=== PATIENT | female | born 1955 | race Hispanic/Latino ===

== ENCOUNTER 2018-01-29 02:19 | Observation (INO) | payer OTHER ==
[~2018-01-29] VITALS: Ht 165.1 cm; Wt 76.7 kg
[2018-01-29] VITALS (7 sets, daily range): BP systolic 101–153; BP diastolic 57–73
[~2018-01-29 02:19] MED LIST: Z.0.CELEBREX200 MG PO; Z.0.DIOVAN320 MG PO; Z.0.EXFORGE HCT 101; Z.0.MOBIC15 MG; Z.0.PROTONIX40 MG PO; Z.0.TOPROL XL50 MG PO; Z.0.VERAMYST10 GM; Z.0.XANAX0.25 MG
[2018-01-29 02:52] LABS: BASOPHILS % 0.2 % (0.0-1.0); EOSINOPHILS # (AUTO) 0.1 (0.0-0.4); EOSINOPHILS % 1.3 % (0.0-6.0); HEMATOCRIT 40.1 % (34.2-44.1); HEMOGLOBIN 13.4 g/dL (12.0-16.0); LYMPHOCYTES # (AUTO) 2.4 (1.0-3.2); LYMPHOCYTES % 27.8 % (18.0-39.1); MEAN CORPUSCULAR HEMOGLOBIN 31.1 pg (28-32); MEAN CORPUSCULAR HGB CONC 33.4 g/dL (31-35); MONOCYTES # (AUTO) 0.6 (0.2-0.8); MONOCYTES % 6.7 % (4.4-11.3); NEUTROPHILS # (AUTO) 5.4 (2.1-6.9); NEUTROPHILS % 63.8 % (38.7-80.0); PLATELET COUNT 182 x10e3/uL (140-360); RED BLOOD COUNT 4.31 x10e6/uL (3.6-5.1); RED CELL DISTRIBUTION WIDTH 12.8 % (11.7-14.4)
[2018-01-29 03:04] LABS: BILIRUBIN,URINE NEGATIVE (NEGATIVE); CLARITY,URINE CLEAR (CLEAR); COLOR,URINE YELLOW (YELLOW); KETONES,URINE NEGATIVE (NEGATIVE); LEUKOCYTE ESTERASE ,URINE NEGATIVE (NEGATIVE); NITRITE,URINE NEGATIVE (NEGATIVE); PROTEIN,URINE DIPSTICK NEGATIVE (NEGATIVE); URINE UROBILINOGEN 0.2 mg/dL (0.2 - 1)
[2018-01-29 03:06] LABS: BACTERIA,URINE FEW /HPF; EPITHELIAL CELLS,URINE RARE /LPF; WBC,URINE (MAN) 0-5 /HPF (0-5)
[2018-01-29] MEDS ORDERED: MORPHINE SULFATE 2 MG/ML SYR IV STA (03:16)
[2018-01-29] MEDS ORDERED: ONDANSETRON HCL INJ 2 MG/ML VIAL IV STA (03:16)
[2018-01-29 03:18] LABS: ALANINE AMINOTRANSFERASE 16 IU/L (0-55); ALBUMIN 3.6 g/dL (3.5-5.0); ALBUMIN/GLOBULIN RATIO 1.2 (0.8-2.0); ALKALINE PHOSPHATASE 64 IU/L (40-150); ANION GAP 13.5 mmol/L (8-16); BLOOD UREA NITROGEN 12 mg/dL (7-26); BUN/CREATININE RATIO 14 (6-25); CALCIUM 8.7 mg/dL (8.4-10.2); CARBON DIOXIDE 24 mmol/L (22-29); CHLORIDE 107 mmol/L (98-107); CREATININE, SERUM 0.83 mg/dL (0.57-1.11); EST GLOMERULAR FILTRATION RATE > 60 ML/MIN (60-); GLUCOSE 124 mg/dL (74-118); POTASSIUM 3.5 mmol/L (3.5-5.1); SODIUM 141 mmol/L (136-145)
[2018-01-29] MEDS ORDERED: DIATRIZOATE MEGL/DIATRIZOA SOD 30 ML BTL PO ONE (03:20)
[2018-01-29] MEDS ORDERED: ACETAMINOPHEN 325 MG TAB PO ONE (03:45)
--- NOTE | 2018-01-29 05:10 | Diagnostic Imaging Report ---
EXAM: CT ABDOMEN AND PELVIS without IV CONTRAST INDICATION: Lower abdominal pain COMPARISON: None TECHNIQUE: The abdomen and pelvis were scanned using a multidetector helical scanner. Coronal and sagittal reformations were obtained. Routine protocol performed. IV Contrast: None Oral Contrast: Redicat CTDIvol has been reviewed. It is below the limits set by the Radiation Protocol Committee (RPC). FINDINGS: LOWER THORAX: No consolidations LIVER: There are two subcentimeter hypodensities in the liver that are too small to characterize. BILIARY: Normal gallbladder. No ductal dilation. SPLEEN: No masses PANCREAS: No masses ADRENALS: No nodules RIGHT KIDNEY: No nephroureterolithiasis or hydronephrosis. LEFT KIDNEY: No nephroureterolithiasis or hydronephrosis. GI TRACT: The appendix does not fill with contrast and is distended up to 1 cm. There is no significant surrounding inflammation. VESSELS: Mild atherosclerotic changes of the abdominal aorta without aneurysm. PERITONEUM/RETROPERITONEUM: No free air or fluid LYMPH NODES: No lymphadenopathy REPRODUCTIVE ORGANS: Not visualized BLADDER: Normal SOFT TISSUES: Normal BONES: No suspicious bone lesions. IMPRESSION: The appendix does not filled with contrast and is distended up to 1 cm. There is no significant adjacent inflammation. This is most likely early acute appendicitis, the differential includes an appendiceal mucocele. Study discussed with Dr. Singh January 29, 2018 at 0503 hours. Signed by: Dr. Barbara Mcduffie M.D. on 01/29/2018 5:06 AM
[2018-01-29] MEDS ORDERED: ACETAMINOPHEN 1000 MG/100 ML IV PRN (05:15)
[2018-01-29] MEDS ORDERED: CEFOXITIN 1GM/ DEXTROSE 50ML ML IV SCH (05:15)
[2018-01-29] MEDS ORDERED: ONDANSETRON HCL INJ 2 MG/ML VIAL IV PRN (05:15)
[2018-01-29] MEDS ORDERED: DIOVAN160 MG PO (05:43)
[2018-01-29] MEDS ORDERED: ZOFRAN ODT4 MG (05:44)
[2018-01-29] MEDS: SODIUM CHLORIDE 0.9% 1000ML 1,000 ML IV SCH ×2 (05:54→16:57)
[2018-01-29] MEDS: CEFOXITIN 1GM/ DEXTROSE 50ML 50 ML IV SCH ×2 (07:54→08:30)
[2018-01-29] MEDS ORDERED: PANTOPRAZOLE SOD 40 MG TABEC PO PRN (10:45)
[2018-01-29] MEDS ORDERED: HYDRALAZINE HCL 20 MG/ML VIAL IV PRN (10:45)
--- NOTE | 2018-01-29 13:30 | History and Physical ---
CHIEF COMPLAINT: Abdominal pain in right lower quadrant. HPI: This is a 62-year-old female with past medical history of hypertension and acid reflux who comes into the ED with complaints of abdominal pain that began last night. Patient reports she had periumbilical abdominal pain that first initially went to the left lower quadrant, then radiated to the right lower quadrant. She had some associated nausea, vomiting, and diarrhea. Patient presented to the ED with CT scan consistent with acute appendicitis. Patient was seen and evaluated at bedside on the medical floor, currently doing well with no other complaints. She is using Tylenol for pain and her pain is well controlled at this time. General surgery has been consulted. Her vital signs were stable when I evaluated her and her white count is 8.4. REVIEW OF SYSTEMS: Pertinent positive: Nausea, vomiting, diarrhea, abdominal pain. Pertinent negative: Denies any chest pain, palpitations, dysuria, hematuria, frequency, urgency, lightheadedness, dizziness, headache, shortness of breath, fever, cough, congestion, or any other complaints. The rest of the 14-point review of systems are reviewed with patient and are negative. ALLERGIES: CODEINE, IODINE, LEVAQUIN, MELOXICAM, MORPHINE, TRAMADOL. HOME MEDICATIONS 1. Metoprolol XL 50 mg every 24 hours. 2. Protonix 40 mg daily. 3. Valsartan 160 mg p.o. b.i.d. PAST MEDICAL HISTORY: Hypertension, acid reflux. SURGICAL HISTORY: Reports none. FAMILY HISTORY: Hypertension and diabetes. SOCIAL HISTORY: No drugs, no alcohol, does not smoke. Good social support. Has children. VITAL SIGNS: Temperature is 98.5, pulse 74, respiratory rate is 18, blood pressure 142/62, pulse ox 94% on room air. LABORATORY DATA: Lab findings show white count of 8.4, hemoglobin 13, hematocrit is 40, platelets of 182. Chemistries: Sodium 141, potassium 3.5, chloride 107, bicarb 24, anion gap of 13, BUN is 12, creatinine is 0.8, glucose 124, calcium 8.7, total bilirubin 0.5, AST 18, ALT 16, total protein 6.6, albumin 3.6. Urinalysis was found to be negative. MICROBIOLOGY: None. IMAGING STUDIES: CT abdomen and pelvis without IV contrast showed there are concerns for early acute appendicitis. PHYSICAL EXAMINATION GENERAL: Not in acute distress, alert and oriented x3, cooperative on exam. HEENT: Head normocephalic, atraumatic. Eyes: Pupils equal and reactive to light bilaterally. Extraocular movements intact bilaterally. Throat: No evidence of any erythema or exudates in the posterior pharynx. Has poor dentition. NECK: Supple with good range of motion. PULMONARY: Clear to auscultation bilaterally. No wheezing, no rales, no rhonchi, no crackles appreciated. CARDIOVASCULAR: Positive S1, S2. No murmurs, rubs, or gallops appreciated. ABDOMEN: Tender to palpation in the periumbilical area right lower quadrant. Abdomen is soft and nondistended. Bowel sounds present. MUSCULOSKELETAL: Strength is 5/5 throughout. No evidence of any muscle deficit on examination. No weakness appreciated. NEUROLOGIC: Cranial nerves II through XII grossly intact. No evidence of any neurological deficit on exam. SKIN: Intact. Warm to touch. Good cap refill. PSYCHIATRIC: Normal affect and mood. EXTREMITIES: No edema. Good range of motion throughout. IMPRESSION 1. Abdominal pain with acute appendicitis. 2. Hypertension. 3. Nausea, vomiting, and dehydration. 4. Diarrhea. PLAN: At this time, patient is n.p.o. General surgery consulted for possible appendectomy, was evaluated by surgery. Will keep n.p.o., IV fluids, pain control. Resume antihypertensives that she takes at home. PRN hydralazine. Continue with IV fluid for hydration for now. Continue with n.p.o. Will await for general surgery's final recommendations and we will continue from there. Job#: [id number] JEREMY
[2018-01-29] MEDS: CEFOXITIN SOD 1 GM VIAL IV SCH (16:57)
[2018-01-29] MEDS: VALSARTAN 160 MG TAB PO SCH (17:00)
[2018-01-30 00:28] VITALS: BP 135/62
[2018-01-30] MEDS: SODIUM CHLORIDE 0.9% 1000ML 1,000 ML IV SCH ×2 (00:46→05:52)
[2018-01-30] MEDS: CEFOXITIN SOD 1 GM VIAL IV SCH ×3 (00:46→17:16)
[2018-01-30 05:28] LABS: BASOPHILS % 0.5 % (0.0-1.0); EOSINOPHILS # (AUTO) 0.2 (0.0-0.4); EOSINOPHILS % 3.7 % (0.0-6.0); HEMATOCRIT 39.1 % (34.2-44.1); HEMOGLOBIN 12.6 g/dL (12.0-16.0); LYMPHOCYTES # (AUTO) 2.4 (1.0-3.2); LYMPHOCYTES % 55.4 % (18.0-39.1); MEAN CORPUSCULAR HEMOGLOBIN 30.8 pg (28-32); MEAN CORPUSCULAR HGB CONC 32.2 g/dL (31-35); MEAN CORPUSCULAR VOLUME 95.6 fL (81-99); MONOCYTES # (AUTO) 0.4 (0.2-0.8); NEUTROPHILS # (AUTO) 1.4 (2.1-6.9); NEUTROPHILS % 30.9 % (38.7-80.0); PLATELET COUNT 123 x10e3/uL (140-360); RED BLOOD COUNT 4.09 x10e6/uL (3.6-5.1); RED CELL DISTRIBUTION WIDTH 12.9 % (11.7-14.4)
[2018-01-30 05:55] LABS: ALANINE AMINOTRANSFERASE 14 IU/L (0-55); ALBUMIN/GLOBULIN RATIO 1.2 (0.8-2.0); ALKALINE PHOSPHATASE 53 IU/L (40-150); ANION GAP 13.2 mmol/L (8-16); BLOOD UREA NITROGEN 6 mg/dL (7-26); BUN/CREATININE RATIO 8 (6-25); CALCIUM 7.6 mg/dL (8.4-10.2); CARBON DIOXIDE 19 mmol/L (22-29); CHLORIDE 116 mmol/L (98-107); CREATININE, SERUM 0.72 mg/dL (0.57-1.11); EST GLOMERULAR FILTRATION RATE > 60 ML/MIN (60-); GLUCOSE 77 mg/dL (74-118); POTASSIUM 4.2 mmol/L (3.5-5.1); SODIUM 144 mmol/L (136-145)
[2018-01-30 06:23] VITALS: BP 117/56
[2018-01-30 06:39] LABS: PLATELET ESTIMATE SLIGHTLY DECREASED
[2018-01-30 06:40] LABS: PLATELET MORPHOLOGY COMMENT FEW LARGE; RBC MORPHOLOGY COMMENT NORMAL
[2018-01-30 07:30] VITALS: BP 163/76
[2018-01-30 08:15] VITALS: BP 163/76
[2018-01-30] MEDS: VALSARTAN 160 MG TAB PO SCH ×2 (08:35→17:17)
[2018-01-30] MEDS ORDERED: METOPROLOL SUCCINATE 50 MG TAB XL PO SCH (09:00)
[2018-01-30 11:30] VITALS: BP 153/69
--- NOTE | 2018-01-30 13:12 | Discharge Summary ---
DISCHARGE DIAGNOSES 1. Abdominal pain likely secondary to viral gastroenteritis. 2. Dilated appendix, no evidence of appendicitis per General Surgery. 3. Nausea, vomiting, dehydration--resolved. 4. Tolerated regular diet. CONSULTANTS: General Surgery. VITAL SIGNS: Temperature is 97.9, pulse 74, respiratory rate is 18, blood pressure 163/76, pulse ox 97% on room air. LAB FINDINGS: Show white count of 4.3, hemoglobin 12, hematocrit is 39, platelets of 123. Chemistry: Sodium 144, potassium 4.2, chloride 116, bicarb is 19, anion gap of 13, BUN is 6, creatinine is 0.7, glucose 77. LFTs were normal. Albumin was 3. Urinalysis was negative. MICROBIOLOGY: None. IMAGING STUDIES: CT abdomen and pelvis: The appendix is not filled with contrast. It is distended up to 1 cm. There is no significant adjacent inflammation. This is most likely early acute appendicitis. HOSPITAL COURSE: This is a 62-year-old female who comes into the ED with complaints of abdominal pain, nausea, vomiting and dehydration. Patient was admitted and further evaluated. General Surgery was consulted. CT imaging was concerning for underlying dilation of the appendix and possible underlying acute appendicitis, but after further review by Cardiology it was felt that the patient likely has viral gastroenteritis and there was no evidence of acute appendicitis. Of note, General Surgery okayed the patient for discharge home after tolerating diet. On discharge patient was tolerating diet well with no other complaints. She had no other complaints of abdominal pain. Nausea, vomiting had all resolved prior to discharge home. On the day of discharge, vital signs stable, labs reviewed and stable. Patient seen and evaluated and examined thoroughly on the day of discharge with no other complaints. Patient verbalized understanding and agreed with the plan of care. Follow up accordingly as an outpatient with the primary care physician in 1 week. Patient was cleared by General Surgery for discharge home. Patient tolerating diet prior to discharge home, and she has no other complaints. MEDICATIONS: See med reconciliation form. DISPOSITION: To home. CONDITION: Stable. DIET: Heart healthy. FOLLOWUP: Follow up with primary care physician in 1 week. In the event of any worsening symptoms, patient advised to come back to the ED for further evaluation. Discharge summary took greater than 35 minutes. TYSON GUTIERREZ MD Job#: [id number] EV
[2018-01-30 16:23] VITALS: BP 144/69
== END 2018-01-30 18:11 | disposition home or self-care (01) ==
LOC: ER 02:19 → INTOOBSV 05:07 → ERHOLD 05:07 → MED/SURG2 06:19
PROVIDERS: ADMIT Internal Medicine; ATTEND Internal Medicine
DX: A08.4 Viral intestinal infection, unspecified (principal); I10 Essential (primary) hypertension; K21.9 Gastro-esophageal reflux disease without esophagitis; E86.0 Dehydration; R19.7 Diarrhea, unspecified; K38.8 Other specified diseases of appendix
CPT/HCPCS: 36415 ×2; 74176; 80053 ×2; 81001; 82948 ×2; 85025 ×2; 93005; 96360; 96361; 99284; G0378 ×2; J0694 ×2; J2405; J7030 ×2; J2270

== ENCOUNTER 2019-12-17 01:36 | Emergency (ER) | payer MEDICARE ==
[~2019-12-17] VITALS: Ht 165.1 cm; Wt 74.8 kg
[~2019-12-17 01:36] MED LIST changes: +DIOVAN160 MG PO; +XANAX0.25 MG PO; +ZOFRAN ODT4 MG
--- OUTSIDE RECORDS SUMMARY | 2019-12-17 01:39 | XMS REPORT ---
Author Author Beatriz Bolaños Organization [employer] Address Unknown Phone Unavailable Care Team Providers Care Supervisor Of Way Name Role Phone Noa Bolaños CP Unavailable Allergies No Known Allergies Problems Problem Type Condition Code Onset Dates Condition Statu s Problem Anxiety F41.9 Active Problem CARPENTER (dyspnea on exertion) R06.09 Ac tive Problem Hypertensive left ventricular hypertrophy, witho ut heart failure I11.9 Active Problem Dizziness R42 Active Problem Nonrheumatic tricuspid (valve) insufficiency I36.1 Active Problem Heart palpitations R00.2 Active Problem Essential hypertension I10 Activ e Problem Vertigo R42 Active Problem Precordial chest pain R07.2 Active Medications Medication Code System Code Instructions Start Date End Date Status Dosage Metoprolol Succinate [facility] [address]-89 25 MG Orally daily Active 1 tablet Results No Known Results Summary Purpose [employer] Submission
--- OUTSIDE RECORDS SUMMARY | 2019-12-17 01:39 | XMS REPORT | Continuity of Care Document ---
Author Author [employer] Address Unknown Phone Unavailable Care Team Providers Care Answering Service Operator Name Role Phone [employer] Unavailable Un available Problems Problem Status Onset Date Classification Date Reported Comments Source Anxiety Active Problem 11/19/2018 Mohamed O Jeroudi CARPENTER (dyspnea on exertion) Acti ve Problem Mohamed O Jeroudi Hypertensive left ventricular hypertroph y, without heart failure Active Prob eyad 11/19/2018 Mohamed O Jeroudi Dizziness Active Problem 11/19/2018 Mohamed O Jeroudi Nonrheumatic tricuspid (valve) insufficiency Active Problem 11/19/2018 Mohamed O Jeroudi Heart palpitations Active Problem 11/19/2018 Mohamed O Jeroudi Essential hypertension Active Problem 11/19/2018 Mohamed O Jeroudi Vertigo Active Problem 11/19/2018 Mohamed O Jeroudi Precordial chest pain Active Problem 11/19/2018 Mohamed O Jeroudi Medications Medication Details Route Status Patient Instructions Ordering Provider Order Date Source Metoprolol Succinate 1 tablet Orally Active 25 MG Orally daily Deanoushmuel Sandovalamed O Lioneldi Allergies, Adverse Reactions, Alerts No Known Medication Allergies Immunizations No Data Provided for This Section Results No Data Provided for This Section Pathology Reports No Data Provided for This Section Diagnostic Reports No Data Provided for This Section Consultation Notes No Data Provided for This Section Discharge Summaries No Data Provided for This Section History and Physicals No Data Provided for This Section Vital Signs No Data Provided for This Section Encounters No Data Provided for This Section Procedures No Data Provided for This Section Assessment and Plan No Data Provided for This Section Plan of Care No Data Provided for This Section Social History No Data Provided for This Section Family History No Data Provided for This Section Advance Directives No Data Provided for This Section Functional Status No Data Provided for This Section
--- OUTSIDE RECORDS SUMMARY | 2019-12-17 01:40 | XMS REPORT | Continuity of Care Document ---
Author Author [facility] t Organization [facility] Address [address] [place] [address] Phone Unavailable Care Team Providers Care Acquisition Lead Name Role Phone FRANK FONSECA MD PCP DAHU, S JIRIES Attphys Unavailable DAHU, S JIRIES Admphys Unavailable Payers Payer Name Policy Type Policy Number Effective Date Expiration Date Elmer fabian [facility] Medicare Complete [id number] 2018 00:00:00 [facility] [employer] [id number] 2007 00:00:00 [facility] Problems Condition Name Condition Details Condition Category Status Onset Date Resolution Date Last Treatment Date Treating Clinician Comments Source Appendicitis Appendicitis Problem Active [facility] Anxiety Anxi ety Active Problem 11/19/2018 Noa Moranprecious Problem Active 2018-11-19 02:45:22 Amilcar Borrero CARPENTER (dyspnea on exertion) CARPENTER (dyspnea on exertion) Active Problem 11/19/2018 Loriamed O Deanoudi Problem Active 23-11-15 02:45:22 Drew Borrero Hypertensive left ventricular hypertrophy, without hea rt failure Hypertensive left ventricular hypertrophy, without heart failure Active Problem 11/19/2018 Mohamed O Deanoudi Problem Active 23-11-15 02:45:22 Drew Borrero Dizziness Dizz iness Active Problem 11/19/2018 Mohamed O Jeroudi Problem Active 2018-11-19 02:45:22 Drew Borrero Nonrheumatic tricuspid (valve) insufficiency Nonrheumatic tricuspid (valve) insufficiency Active Problem 11/19/2018 Noa Bolaños Problem Active 2018-11-19 02:45:22 [facility] Heart palpitations Hear t palpitations Active Problem 11/19/2018 Noa Bolaños Problem Active 2018-11-19 02:45:22 [facility] Essential hypertension Esse ntial hypertension Active Problem 11/19/2018 Noa Bolaños Problem Active 20 23-11-15 02:45:22 [facility] Precordial chest pain Prec ordial chest pain Active Problem 11/19/2018 Noa Bolaños Problem Active 2018-11-19 02:45:2 2 [facility] Allergies, Adverse Reactions, Alerts Allergy Name Allergy Type Status Severity Reaction(s) Onset Date Inacti ve Date Treating Clinician Comments Source Morphine Allergy to Substance Active tachycardia 2018-01-29 00:00: 00 [facility] Tramadol Allergy to Substance Active tachycardia and shakes 2018-01-29 00:00:00 [facility] Meloxicam Allergy to Substance Active 2018-01-29 00:00:00 [facility] iodine DA Active [place] 2016-05-14 00:00:00 [facility] codeine DA Active [place] 2016-05-14 00:00:00 [facility] levofloxacin DA Active [place] 2016-05-14 00:00:00 [facility] Iodine Allergy to Substance Active Severe 2016-04-23 00:00:00 [facility] Codeine Allergy to Substance Active Moderate 2016-04-23 00:00:00 [facility] Levofloxacin Allergy to Substance Active 2016-04-23 00:00:0 0 [facility] SHRIMP DA Active [place] 2012-12-09 00:00:00 [facility] Medications Ordered Medication Name Filled Medication Name Start Date Stop Da te Current Medication? Ordering Clinician Indication Dosage Frequency Signature (SIG) Comments Components Source Alprazolam (Xanax) 0.25 Mg Tablet Alprazolam (Xanax) 0.25 Mg Tablet 2019-04-29 00:00:00 Yes Von Mcghee Md 1 Three Times A Day as needed for Anxiety [facility] Metoprolol Succinate 2018-11-19 02:45:22 Yes Noa Bolaños 1 tablet [facility] Metoprolol Succinate (Toprol Xl) 50 Mg Tab.sr.24h Meto prolol Succinate (Toprol Xl) 50 Mg Tab.sr.24h Yes 50 Rt Daily [facility] Ondansetron (Zofran Odt) 4 Mg Tab.rapdis Ondansetron ( Zofran Odt) 4 Mg Tab.rapdis Yes 8 Every 6 Hours as needed for Nausea And Vomiting [facility] Pantoprazole Sodium (Protonix) 40 Mg Tablet. Pantopr azole Sodium (Protonix) 40 Mg Tablet. Yes 40 Rt Daily as needed for In digestion [facility] Valsartan (Diovan) 160 Mg Tab Valsartan (Diovan) 160 Mg Tab Yes 160 Twice A Day [facility] Alprazolam (Xanax) 0.25 Mg Tablet, Alprazolam (Xanax) 0.25 Mg Ta blet, 2018-01-29 00:00:00 No Daily [facility] Amlodipine/Valsartan/Hctz (Exforge Hct 10-320-25 Mg Ta b) 1 Each Tablet, Amlodipine/Valsartan/Hctz (Exforge Hct 10-320-25 Mg Tab) 1 Each Tablet, 2018-01-29 00:00:00 No Daily [facility] Celecoxib (Celebrex) 200 Mg Capsule, 200 Mg Oral Celec oxib (Celebrex) 200 Mg Capsule, 200 Mg Oral 2018-01-29 00:00:00 No 200 Rt Bid [facility] Fluticasone Furoate (Veramyst) 10 Gm [place].susp, Fluti casone Furoate (Veramyst) 10 Gm [place].susp, 2018-01-29 00:00:00 No [facility] Meloxicam (Mobic) 15 Mg Tablet, Meloxicam (Mobic) 15 Mg Tablet, 2018-01-29 00:00:00 No Daily [facility] Valsartan (Diovan) 320 Mg Tablet, 320 Mg Oral Valsarta n (Diovan) 320 Mg Tablet, 320 Mg Oral 2018-01-29 00:00:00 No 320 [facility] Procedures This patient has no known procedures. Encounters Start Date/Time End Date/Time Encounter Type [facility] Encounter ID Source 2019-04-29 19:58:00 2019-04-29 21:27:00 Departed Emergency Room [facility] [id number] [facility] 2018-11-18 15:28:00 2018-11-18 15:28:00 Outpatient Noa Bolaños MD [place] [id number] [employer] 2018-01-29 05:07:00 2018-01-30 18:11:00 Discharged Inpatient (obs) 1 TYSON GUTIERREZ [facility] [id number] [facility] Results Test Description Test Time Test Comments Results Result Comments Source - HEPA IMAG INCL GB W PHA 2019-11-19 11:24:00 [place]: B St: REG -- Name: SHIVACAMPBELL SUMMERS [facility] : 1955 Age/S: 64/F [address] [facility] Unit #: [id number] Loc: [place] [address] Phys: Frank Barney MD Acct: [id number] Dis Date: Status: REG CLI PHONE #: [phone] Exam Date: 11/19/2019 1019 FAX #: [phone] Reason: R10.13 EXAMS: CPT CODE: [id number] HEPA IMAG INCL GB W PHA [id number] HISTORY: R10.13 EXAM: NUCLEAR MEDICINE HEPATOBILIARY SCAN. TECHNIQUE: After IV injection of 5.9 mCi Tc 99m Choletec, sequential planar images were obtained over the upper abdomen out to 60 minutes. FINDINGS: Homogeneous distribution of radiopharmaceutical in the liver. Normal accumulation of radiopharmaceutical in the gallbladder by 45 minutes. Normal accumulation of radiopharmaceutical in small bowel by 30 minutes. Gallbladder ejection fraction measured up to 68%. IMPRESSION: 1. No evidence of acute cholecystitis or biliary obstruction. 2. Normal gallbladder ejection fraction. Location: [facility] at 1124 Reported and signed by: Gomez Villafana MD CC: Technologist: PRITESH RAJPUT Trnscrd Date/Time/By: 11/19/2019 (1124) : By: [email or web address] Orig Print D/T: S: 11/19/2019 (1120) PAGE 1 Signed Report - US ABDOMEN COMPLETE 2019-11-17 10:35:00 Name : CAMPBELL SHANNON [facility] : 1955 Age/S: 64 / F [address] [facility] Unit #: [id number] Loc: [place] [address] Phys: Frank Barney MD Acct: [id number] Dis Date: Status: REG CLI PHONE #: [phone] Exam Date: 11/17/2019 0954 FAX #: [phone] Reason: R14.0,R10.84 EXAMS: CPT CODE: [id number] US ABDOMEN COMPLETE 33422 REASON FOR EXAM: R14.0,R10.84 EXAM ORDER DATE: 11/17/2019 8:49 AM Attending M.D.: Frank Granados MD PROCEDURE: - US ABDOMEN COMPLETE Technique: Grayscale and color Doppler images of the abdomen. Comparison study: Abdominal ultrasound June 11, 2017 FINDINGS: Aorta and IVC: Patent and grossly normal in caliber. Liver: Size: 13.2 cm craniocaudally Parenchyma and contour: Smooth contour. Normal echogenicity. Cysts and/or masses: None. Intrahepatic bile ducts: No intrahepatic biliary ductal dilation Common bile duct: 1.6 mm in diameter. No echogenic filling defects in visualized duct. Gallbladder: Stones/sludge: No intraluminal stones or sludge. Wall: 1.7 mm in thickness. No discontinuity. No polyps. No pericholecystic fluid. No hyperemia. Sonographic Dunn's sign: Negative Portal vein: Portal vein caliber is within normal limits. Portal vein is patent with hepatopetal flow. Pancreas: Incompletely visualized. However the visualized portions are grossly within normal limits. Right kidney: parenchyma echogenicity: Normal echogenicity size: 8.3 x 3.8 x 4.3 cm stones: none cysts/masses: none hydronephrosis: none PAGE 1 Signed Report (CONTINUED) Name: CAMPBELL SHANNON [facility] : 1955 Age/S: 64 / F [address] [facility] Unit #: [id number] Loc: [place] [address] Phys: Frank Barney MD Acct: [id number] Dis Date: Status: REG CLI PHONE #: [phone] Exam Date: 11/17/2019953 FAX #: [phone] Reason: R14.0,R10.84 EXAMS: CPT CODE: [id number] US ABDOMEN COMPLETE 95789 <Continued> Left kidney: parenchyma echogenicity: Normal echogenicity size: 8.1 x 4.2 x 3.6 cm stones: none cysts/masses: none hydronephrosis: none Spleen: size: 7.9 x 2.8 x 3.1 cm cysts/masses: Parenchyma is sonographically unremarkable. Ascites/pleural effusions: None IMPRESSION: Sonographically unremarkable abdomen. Location: [facility] Electronically Signed by Gomez Villafana MD on 11/16 at 1035 Reported and signed by: Gomez Villafana MD CC: Technologist: Netta Escobar RDMS Trnmab Date/Time: 11/17/2019 (1035) [email or web address] Orig Print D/T: S: 11/17/2019 (1038) Probe: PAGE 2 Signed Report SCR MAMM BILATERAL EVER CAD DIGITAL 2018-10-29 12:34:29 - SCR MAMM BILATERAL EVER CAD DIGITALBILATERAL DIGITAL SCREENING MAMMOGRAM 3D/2D WITH CAD: 10/29/2018CLINICAL: Asymptomatic. Digital breast tomosynthesis was performed in addition to routine CC and MLO views. Current mammographic images were evaluated by either a [employer] M-Vu or a [employer] CAD (computer aided detection system). Comparison is made to exams dated 12/18/2017 mammogram, 10/30 mammogram, and 10/27/2015 mammogram - [facility]-. There are scattered fibroglandular tissues in both breasts. No suspicious mass, architectural distortion, malignant type calcification, or lymph node abnormality detected. Breast architecture is stable compared to prior exams.IMPRESSION: NEGATIVEThere is no mammographic evidence of malignancy. Resume annual screening mammography in one year. Gilbert Nielsen M.D. ss/penrad:10/29/2018 12:34:29 Nuclear Logging Engineer: Kim Gonzalez FW, [facility]-letter sent: BIRADS 1-2 Normal Mammogram BI-RADS: 1 Negative Bedside Glucose 2018-01-30 16:27:00 Test Item Bedside Glucose (test code = 78278-9) 91 70-120 Meter ID: [id number]atelet Estimate 2018-01-30 06:40:00* Test Item Value Reference Range Interpretation Comments Platelet Estimate (test code = 80344-5) SLIGHTLY DECREASED [facility] Tyler[facility] Morphology Fvaoqlj1816-65-69 06:40:00* Test Item Value Reference Range Interpretation Comments Platelet Morphology Comment (test code = 47818-6) FEW LARGE [facility] TylerRed Cell Morphology Lkgvzdk3939-39-19 06:40:00* Test Item Value Reference Range Interpretation Comments Red Cell Morphology Comment (test code = 6742-1) [facility] Zewta6378-46-50 05:57:00* Test Item Value Reference Range Interpretation Comments Sodium Level (test code = 2951-2) 144 136-145 [facility] TylerPotassium Polyb2813-86-85 05:57:00* Test Item Value Reference Range Interpretation Comments Potassium Level (test code = 2823-3) 4.2 3.5-5.1 [facility] TylerChloride Igthy0778-16-32 05:57:00* Test Item Value Reference Range Interpretation Comments Chloride Level (test code = 2075-0) 116 98-107 H [facility] TylerCarbon Dioxide Isgnr7051-55-56 05:57:00* Test Item Value Reference Range Interpretation Comments Carbon Dioxide Level (test code = 2028-9) 19 22-29 L [facility] TylerAnion Rpr8111-03-54 05:57:00* Test Item Value Reference Range Interpretation Comments Anion Gap (test code = 16785-5) 13.2 8-16 [facility] Tyler[facility] Urea Xznvlkyn0964-93-31 05:57:00* Test Item Value Reference Range Interpretation Comments Blood Urea Nitrogen (test code = 3094-0) 6 7-26 L [facility] TylerCreatinine2018-07-27 05:57:00* Test Item Value Reference Range Interpretation Comments Creatinine (test code = 2160-0) 0.72 0.57-1.11 [facility] Tyler[facility]UN/Creatinine Vyhsg0048-86-60 05:57:00* Test Item Value Reference Range Interpretation Comments BUN/Creatinine Ratio (test code = 3097-3) 8 6-25 [facility] TylerEstimat Glomerular Filtration Rate 2018-01-30 05:57:00* Test Item Value Reference Range Interpretation Comments Estimat Glomerular Filtration Rate (test code = 56929-3) 60- >60 Ranges were taken from the National Kidney Disease Education Program and the [facility] Foundation literature.Reference ranges:60 or greater: Hbgknk84-55 ( for 3 consecutive months): Chronic kidney disease 15 or less: Kidney failureCHRISTUS Mother Frances Hospital – TylerGlucose Gpkew8404-82-12 05:57:00* Test Item Value Reference Range Interpretation Comments Glucose Level (test code = ZMB3611) 77 74-118 [facility] TylerCalcium Seist1376-46-46 05:57:00* Test Item Value Reference Range Interpretation Comments Calcium Level (test code = 55104-8) 7.6 8.4-10.2 L [facility] TylerTotal Bdzcxjzku8588-13-12 05:57:00* Test Item Value Reference Range Interpretation Comments Total Bilirubin (test code = 1975-2) 0.5 0.2-1.2 [facility] TylerAspartate Amino Transf (AST/SGOT) 2018-01-30 05:57:00* Test Item Value Reference Range Interpretation Comments Aspartate Amino Transf (AST/SGOT) (test code = Aspartate Amino Transf (AST/SGOT)) 19 5-34 [facility] TylerAlanine Aminotransferase (ALT/SGPT) 2018-01-30 05:57:00* Test Item Value Reference Range Interpretation Comments Alanine Aminotransferase (ALT/SGPT) (test code = 1742-6) 14 0-55 [facility] TylerTotal Fdwpaex8208-26-89 05:57:00* Test Item Value Reference Range Interpretation Comments Total Protein (test code = 2885-2) 5.6 6.5-8.1 L [facility] TylerAlbumin2018-07-27 05:57:00* Test Item Value Reference Range Interpretation Comments Albumin (test code = 1751-7) 3.0 3.5-5.0 L [facility] TylerGlobulin2018-07-27 05:57:00* Test Item Value Reference Range Interpretation Comments Globulin (test code = 69906-2) 2.6 2.3-3.5 [facility] TylerAlbumin/Globulin Winca0324-16-01 05:57:00 * Test Item Value Reference Range Interpretation Comments Albumin/Globulin Ratio (test code = 1759-0) 1.2 0.8-2.0 [facility] TylerAlkaline Phtqswvtnlu5701-16-80 05:57:00* Test Item Value Reference Range Interpretation Comments Alkaline Phosphatase (test code = 6768-6) 53 40-150 [facility] TylerWhite Blood Qybsn9799-93-29 05:37:00* Test Item Value Reference Range Interpretation Comments White Blood Count (test code = 6690-2) 4.35 4.8-10.8 L [facility] TylerRed Blood Lqcbn5179-42-58 05:37:00* Test Item Value Reference Range Interpretation Comments Red Blood Count (test code = 789-8) 4.09 3.6-5.1 [facility] TylerHemoglobin2018-07-27 05:37:00* Test Item Value Reference Range Interpretation Comments Hemoglobin (test code = 46284-8) 12.6 12.0-16.0 [facility] TylerHematocrit2018-07-27 05:37:00* Test Item Value Reference Range Interpretation Comments Hematocrit (test code = 4544-3) 39.1 34.2-44.1 [facility] TylerMean Corpuscular Whyppy3131-83-06 05:37:00* Test Item Value Reference Range Interpretation Comments Mean Corpuscular Volume (test code = 787-2) 95.6 81-99 [facility] TylerMean Corpuscular Iltglwhxoa5782-58-80 05:37:00* Test Item Value Reference Range Interpretation Comments Mean Corpuscular Hemoglobin (test code = 785-6) 30.8 28-32 [facility] Hemoglobin Concent 2018-01-30 05:37:00* Test Item Value Reference Range Interpretation Comments Mean Corpuscular Hemoglobin Concent (test code = 786-4) 32.2 31-35 [facility] TylerRed Cell Distribution Ovmfe6578-61-47 05:37:00* Test Item Value Reference Range Interpretation Comments Red Cell Distribution Width (test code = 67773-8) 12.9 11.7 -14.4 [facility] TylerPlatelet Anulz1776-07-07 05:37:00* Test Item Value Reference Range Interpretation Comments Platelet Count (test code = 777-3) 123 140-360 L [facility] TylerNeutrophils (%) (Auto)2018-01-30 05:37:00 * Test Item Value Reference Range Interpretation Comments Neutrophils (%) (Auto) (test code = 13511-6) 30.9 38.7-80.0 L [facility] TylerLymphocytes (%) (Auto)2018-01-30 05:37:00 * Test Item Value Reference Range Interpretation Comments Lymphocytes (%) (Auto) (test code = 736-9) 55.4 18.0-39.1 H [facility] TylerMonocytes (%) (Auto)2018-01-30 05:37:00* Test Item Value Reference Range Interpretation Comments Monocytes (%) (Auto) (test code = 5905-5) 9.0 4.4-11.3 [facility] TylerEosinophils (%) (Auto)2018-01-30 05:37:00 * Test Item Value Reference Range Interpretation Comments Eosinophils (%) (Auto) (test code = 713-8) 3.7 0.0-6.0 [facility] TylerBasophils (%) (Auto)2018-01-30 05:37:00* Test Item Value Reference Range Interpretation Comments Basophils (%) (Auto) (test code = 706-2) 0.5 0.0-1.0 [facility] TylerIM GRANULOCYTES %2018-01-30 05:37:00* Test Item Value Reference Range Interpretation Comments IM GRANULOCYTES % (test code = IM GRANULOCYTES %) 0.5 0.0- 1.0 [facility] TylerNeutrophils # (Auto)2018-01-30 05:37:00* Test Item Value Reference Range Interpretation Comments Neutrophils # (Auto) (test code = 751-8) 1.4 2.1-6.9 L [facility] TylerLymphocytes # (Auto)2018-01-30 05:37:00* Test Item Value Reference Range Interpretation Comments Lymphocytes # (Auto) (test code = 13571-4) 2.4 1.0-3.2 [facility] TylerMonocytes # (Auto)2018-01-30 05:37:00* Test Item Value Reference Range Interpretation Comments Monocytes # (Auto) (test code = 742-7) 0.4 0.2-0.8 [facility] TylerEosinophils # (Auto)2018-01-30 05:37:00* Test Item Value Reference Range Interpretation Comments Eosinophils # (Auto) (test code = 711-2) 0.2 0.0-0.4 [facility] TylerBasophils # (Auto)2018-01-30 05:37:00* Test Item Value Reference Range Interpretation Comments Basophils # (Auto) (test code = 704-7) 0.0 0.0-0.1 [facility] TylerAbsolute Immature Granulocyte (auto 2018-01-30 05:37:00* Test Item Value Reference Range Interpretation Comments Absolute Immature Granulocyte (auto (reyna t code = Absolute Immature Granulocyte (auto) 0.02 0-0.1 [facility] KN1370-50-34 04:50:00 [facility] [address] [address] Patient Name: CAMPBELL SHANNON MR #: [id number] : 1955 Age/Sex: 62/F Req #: [id number] Adm Physicia n: TYSON GUTIERREZ MD Ordered by: ABDIAS SNOW MD Report #: [id number] [facility] Room/Bed: [employer] Procedure: 072 6-0004 CT/CT ABDOMEN/PELVIS WO Exam Date: 01/29/18 E xam Time: 0443 REPORT STATUS: Signed ADDENDUM #1 Dose modulation, iterative reconstruction, and/or weight based adjustment of the mA/kV was utilized to reduce the radiation dose to as low as reasonably achievable. Signed by: Dr. Michelle Mcduffie M.D. on 03/03/2018 5:34 AM ORIGINAL REPORT EXAM: CT ABDOMEN AND PELVIS without IV CO NTRAST INDICATION: Lower abdominal pain COMPARISON: None TECHNIQUE: The abdomen and pelvis were scanned using a multidetector helical scanner. Coronal and sagittal reformations were obtained. Routine protocol performed. IV Co ntrast: None Oral Contrast: Redicat CTDIvol has been reviewed. It is below t he limits set by the Radiation Protocol Committee (RPC). FINDINGS: LOWE R THORAX: No consolidations LIVER: There are two subcentimeter hypodensitie s in the liver that are too small to characterize. BILIARY: Normal gallbladd er. No ductal dilation. SPLEEN: No masses PANCREAS: No masses ADREN ALS: No nodules RIGHT KIDNEY: No nephroureterolithiasis or hydronephrosis. LEFT KIDNEY: No nephroureterolithiasis or hydronephrosis. GI TRACT: T he appendix does not fill with contrast and is distended up to 1 cm. There is no significant surrounding inflammation. VESSELS: Mild atherosclerotic rubina nges of the abdominal aorta without aneurysm. PERITONEUM/RETROPERITONEUM: No f ree air or fluid LYMPH NODES: No lymphadenopathy REPRODUCTIVE ORGANS: Not visualized BLADDER: Normal SOFT TISSUES: Normal BONES: No suspicious b one lesions. IMPRESSION: The appendix does not filled with contrast and i s distended up to 1 cm. There is no significant adjacent inflammation. This is most likely early acute appendicitis, the differential includes an appendiceal mucocele. Study discussed with Dr. Snow January 29, 2018 at 0503 hours. Signed by: Dr. Michelle Mcduffie M.D. on 01/29/2018 5:06 AM Dictated By: MICHELLE MCDUFFIE MD 0534 Transcribed By: ABRAHAM on 01/29/18 0506 COPY TO: MELVA SNOW MD Urine ZFU0102-16-45 03:06:00* Test Item Value Reference Range Interpretation Comments Urine WBC (test code = 5821-4) 0-5 0-5 [facility] Tyler[facility] [id number] 03:06:00* Test Item Value Reference Range Interpretation Comments Urine RBC (test code = 54013-0) NONE 0-5 [facility] Tyler[facility] Gmevdjez0835-95-13 03:06:00* Test Item Value Reference Range Interpretation Comments Urine Bacteria (test code = 57402-5) FEW NONE [facility] Tyler[facility] Epithelial Ssezv4268-90-81 03:06:00 * Test Item Value Reference Range Interpretation Comments Urine Epithelial Cells (test code = 64834-0) RARE NONE [facility] TylerU[facility] Eamkh2139-62-40 03:04:00* Test Item Value Reference Range Interpretation Comments Urine Color (test code = 5778-6) YELLOW YELLOW [facility] TylerU[facility] Joboyfp9405-11-61 03:04:00* Test Item Value Reference Range Interpretation Comments Urine Clarity (test code = 02465-0) CLEAR CLEAR [facility] TylerUrine Specific Mftolfw8875-90-42 03:04:00 * Test Item Value Reference Range Interpretation Comments Urine Specific [place] (test code = 5811-5) 1.025 1.010-1.02 5 [facility] TylerU[facility] lY9369-22-00 03:04:00* Test Item Value Reference Range Interpretation Comments Urine pH (test code = 90772-3) 6 5-7 [facility] Tyler[facility] Leukocyte Hqwselqn6097-31-98 03:04:00* Test Item Value Reference Range Interpretation Comments Urine Leukocyte Esterase (test code = 5799-2) NEGATIVE NEGATIVE [facility] Cwqdqad4869-15-64 03:04:00* Test Item Value Reference Range Interpretation Comments Urine Nitrite (test code = 47189-2) NEGATIVE NEGATIVE [facility] Tyler[facility] Lpzcewh2945-81-52 03:04:00* Test Item Value Reference Range Interpretation Comments Urine Protein (test code = 5804-0) NEGATIVE NEGATIVE [facility] Glucose (UA)2018-01-29 03:04:00* Test Item Value Reference Range Interpretation Comments Urine Glucose (UA) (test code = 2349-9) NEGATIVE NEGATIVE [facility] [id number] 03:04:00* Test Item Value Reference Range Interpretation Comments Urine Ketones (test code = 52917-0) NEGATIVE NEGATIVE [facility] [id number] 03:04:00* Test Item Value Reference Range Interpretation Comments Urine Urobilinogen (test code = 52610-7) 0.2 0.2-1 [facility] [id number] 03:04:00* Test Item Value Reference Range Interpretation Comments Urine Bilirubin (test code = 1978-6) NEGATIVE NEGATIVE [facility] [id number] 03:04:00* Test Item Value Reference Range Interpretation Comments Urine Blood (test code = 25577-4) NEGATIVE NEGATIVE [facility]
[2019-12-17] MEDS ORDERED: ONDANSETRON HCL INJ 2MG/ML 2ML 2 MG/ML VIAL IV STA (02:22)
[2019-12-17 02:23] LABS: BASOPHILS % 0.3 % (0.0-1.0); EOSINOPHILS # (AUTO) 0.1 (0.0-0.4); EOSINOPHILS % 1.6 % (0.0-6.0); HEMATOCRIT 42.1 % (34.2-44.1); HEMOGLOBIN 13.5 g/dL (12.0-16.0); LYMPHOCYTES # (AUTO) 4.7 (1.0-3.2); MEAN CORPUSCULAR HGB CONC 32.1 g/dL (31-35); MEAN CORPUSCULAR VOLUME 96.6 fL (81-99); MONOCYTES # (AUTO) 0.5 (0.2-0.8); MONOCYTES % 5.4 % (4.4-11.3); NEUTROPHILS # (AUTO) 3.5 (2.1-6.9); NEUTROPHILS % 39.4 % (38.7-80.0); PLATELET COUNT 175 x10e3/uL (140-360); RED BLOOD COUNT 4.36 x10e6/uL (3.6-5.1)
[2019-12-17 02:29] LABS: CLARITY,URINE CLEAR (CLEAR); COLOR,URINE YELLOW (YELLOW)
[2019-12-17 02:30] LABS: KETONES,URINE NEGATIVE (NEGATIVE); LEUKOCYTE ESTERASE ,URINE TRACE (NEGATIVE); NITRITE,URINE NEGATIVE (NEGATIVE); PROTEIN,URINE DIPSTICK NEGATIVE (NEGATIVE); URINE UROBILINOGEN 0.2 mg/dL (0.2 - 1)
[2019-12-17 02:31] LABS: BILIRUBIN,URINE NEGATIVE (NEGATIVE)
[2019-12-17 02:32] LABS: INR 0.84
--- NOTE | 2019-12-17 02:32 | Emergency Department Note ---
History of Present Illnes History of Present Illness Chief Complaint: Chest Pain History of Present Illness This is a 64 year old female STATES, "I WOKE UP AN HOUR AGO AND MY LEFT ARM WAS TINGLING, I WAS HAVING PALPITATIONS, AND MY LOWER STOMACH WAS HURTING." PT ALSO REPORTS BURNING WITH URINATION X4 DAYS;. pt states has had the palpitations before and was worked up by dr rosas for it. she states they did not find any thing wrong, states had a holter monitor, stress test and an echocardiogram. Historian: Patient Arrival Mode: Car Onset (how long ago): hour(s) (1) Location: chest Quality: palpitations Severity: mild Onset quality: sudden Duration (how long): hour(s) (1) Progression: resolved Chronicity: recurrent Context: Denies recent illness, Denies recent surgery Relieving factors: none Exacerbating factors: none Associated symptoms: Reports other (supra pubic pain and dysuria for 4 days) Past Medical/Family History Physician Review I have reviewed the patient's past medical and family history. Any updates have been documented here. Past Medical History Recent Fever: No Clinical Suspicion of Infectio: No New/Unexplained Change in Ment: No Past Medical History: Hypertension, Anxiety, Hyperlipedemia Other Medical History: ANXIETY Past Surgical History: Other Surgery: BREAST CYST REMOVED, NOSE SURGERY, C-SECTIONX2 FOOT SURGERY Social History Smoking Cessation: Never Smoker Counseling Performed: No Alcohol Use: None Any Illegal Drug Use: No TB Exposure/Symptoms: No Physically hurt or threatened: No Family History Family history of heart diseas: No Other Last Tetanus: UNK Any Pre-Existing Lines (PICC,: No Is patient up to date on immun: Yes Last Flu: DENIES Last Pneumovax: UTD Review of Systems Review of Systems Constitutional: Reports no symptoms EENTM: Reports no symptoms Cardiovascular: Reports as per HPI Respiratory: Reports no symptoms Gastrointestinal: Reports no symptoms Genitourinary: Reports as per HPI Musculoskeletal: Reports no symptoms Integumentary: Reports no symptoms Neurological: Reports no symptoms Psychological: Reports no symptoms Endocrine: Reports no symptoms Hematological/Lymphatic: Reports no symptoms Physical Exam Related Data Allergies: Coded Allergies: iodine (Verified Allergy, Severe, 04/23/16) codeine (Verified Allergy, Intermediate, 04/23/16) levofloxacin (Verified Allergy, Unknown, 04/23/16) meloxicam (Verified Allergy, Unknown, 01/29/18) morphine (Verified Allergy, Unknown, tachycardia, 01/29/18) tachycardia tramadol (Verified Allergy, Unknown, tachycardia and shakes, 01/29/18) Triage Vital Signs Vital Signs Date Time Temp Pulse Resp B/P (MAP) Pulse Ox O2 Delivery O2 Flow Rate FiO2 12/17/19 01:39 98.6 67 16 170/89 96 Vital signs reviewed: Yes Physical Exam CONSTITUTIONAL Constitutional: Reports well-developed, Reports well-nourished, Reports other (appears anxious) HENT HENT: Reports normocephalic, Reports atraumatic, Reports oropharynx clear/moist, Reports nose normal HENT L/R: Reports left ext ear normal, Reports right ext ear normal EYES Eyes: Reports PERRL, Reports conjunctivae normal NECK Neck: Reports ROM normal PULMONARY Pulmonary: Reports effort normal, Reports breath sounds normal CARDIOVASCULAR Cardiovascular: Reports regular rhythm, Reports heart sounds normal, Reports capillary refill normal, Reports normal rate GASTROINTESTINAL Abdominal: Reports soft, Reports bowel sounds normal, Reports tender (mild s upra pubic tenderness) GENITOURINARY Genitourinary: Reports exam deferred SKIN Skin: Reports warm, Reports dry MUSCULOSKELETAL Musculoskeletal: Reports ROM normal NEUROLOGICAL Neurological: Reports alert, Reports oriented x 3, Reports no gross motor or sensory deficits PSYCHOLOGICAL Psychological: Reports mood/affect normal, Reports judgement normal Results Laboratory Laboratory Laboratory Tests Test 12/17/19 01:48 Lab results reviewed: Yes Laboratory comments pt with elevated troponin Imaging Imaging results reviewed: Yes Impressions EXAMINATION: CHEST 2 VIEWS INDICATION: ^PALPITATIONS ^[id number] ^[id number] COMPARISON: None FINDINGS: PA and lateral views TUBES and LINES: None. LUNGS: Lungs are well inflated. There is no evidence of pneumonia or pulmonary edema. PLEURA: No pleural effusion or pneumothorax. HEART AND MEDIASTINUM: The cardiomediastinal silhouette is unremarkable. BONES AND SOFT TISSUES: No acute osseous lesion. Soft tissues are unremarkable. UPPER ABDOMEN: No free air under the diaphragm. IMPRESSION: No acute thoracic abnormality. Signed by: Dr. Primo Hernandez MD on 12/17/2019 2:26 AM Procedures 12 Lead ECG Interpretation ECG Interpretation : ECG: ECG 1 Poolroom/Poolhall Manager: Interpreted by ED physician Date: Dec 17, 2019 Time: 01:46 Rhythm: sinus bradycardia Rate: bradycardia BPM: 58 QRS axis: normal T waves normal: Yes Other findings: no other findings Clinical Impression: normal ECG Assessment & Plan Medical Decision Making MDM Patient presents complaining of palpitations that woke her up out of sleep and now resolved. Patient also complains of lower abdominal pain and dysuria for 4 days. CBC, CMP, cardiac enzymes, EKG, UA ordered to eval for arrhythmia, pneumonia, UTI, myocardial infarction, electrolyte abnormality. pt with elevated troponin, this facility has not beds available and is at capacity, pt will require transfer to another facility, i spoke with dr lockhart and dr rosas(pt's testing and regulating chief) and will attempt to transfer to [facility]. pt accepted in transfer to [facility] Assessment & Plan Final Impression: (1) Elevated troponin (2) Palpitations Depart Disposition: TRANS TO OTHER [facility] Last Vital Signs Date Time Temp Pulse Resp B/P (MAP) Pulse Ox O2 Delivery O2 Flow Rate FiO2 12/17/19 01:39 98.6 67 16 170/89 96 Home Meds Active Scripts Alprazolam (XANAX) 0.25 Mg Tablet, 1 TAB PO TID PRN for ANXIETY for 5 Days, #15 Prov:VAIBHAV WALTERS MD 04/29/19 Reported Medications Ondansetron (ZOFRAN ODT) 4 Mg Tab.rapdis, 8 MG Q6H PRN for NAUSEA AND VOMITING, TAB 01/29/18 Valsartan (DIOVAN) 160 Mg Tab, 160 MG PO BID, #60 TAB 01/29/18 Pantoprazole Sodium (Protonix) 40 Mg Tablet.dr, 40 MG PO RDAILY PRN for INDIGESTION 05/21/11 Metoprolol Succinate (Toprol Xl) 50 Mg Tab.sr.24h, 50 MG PO RDAILY 05/21/11 Medications in the ED Ondansetron HCl 4 mg NOW STAT IV ; Start 12/17/19 at 02:22; Stop 12/17/19 at 02:25; Status DC ABDIAS SNOW MD Dec 17, 2019 02:32
[2019-12-17 02:33] LABS: PARTIAL THROMBOPLASTIN TIME 31.5 seconds (23.8-35.5)
[2019-12-17 02:42] LABS: ALBUMIN 3.8 g/dL (3.5-5.0); ALBUMIN/GLOBULIN RATIO 1.2 (0.8-2.0); ANION GAP 13.7 mmol/L (8-16); CALCIUM 9.5 mg/dL (8.4-10.2); CREATININE, SERUM 1.06 mg/dL (0.57-1.11); POTASSIUM 3.7 mmol/L (3.5-5.1)
[2019-12-17 02:48] LABS: CREATINE KINASE MB 1.6 ng/mL (0-5.0)
[2019-12-17 03:09] LABS: BACTERIA,URINE RARE /HPF; EPITHELIAL CELLS,URINE FEW /LPF; RBC,URINE 0-5 /HPF (0-5); WBC,URINE (MAN) 0-5 /HPF (0-5)
[2019-12-17] MEDS ORDERED: ASPIRIN 325 MG TAB PO ONE (03:30)
[2019-12-17 04:06] LABS: CREATINE KINASE MB 1.7 ng/mL (0-5.0)
== END 2019-12-17 05:15 | disposition other institution (70) ==
LOC: ER 01:36
DX: R00.2 Palpitations (principal); R79.89 Other specified abnormal findings of blood chemistry; I10 Essential (primary) hypertension; E78.5 Hyperlipidemia, unspecified; F41.9 Anxiety disorder, unspecified
CPT/HCPCS: 36415; 71046; 80053; 81001; 82550; 82553; 84484; 85025; 85610; 85730; 93005; 99284; J2405

== ENCOUNTER 2021-05-19 10:57 | Emergency (ER) | payer MEDICARE ==
[~2021-05-19] VITALS: Ht 170.2 cm; Wt 75.9 kg
[2021-05-19] MEDS ORDERED: VITAMIN D3250 MC1 (11:45)
[2021-05-19] MEDS ORDERED: CALCIUM CARBON500 MG PO (11:45)
[2021-05-19] MEDS ORDERED: IRBESARTAN150 MG PO (11:45)
[2021-05-19] MEDS ORDERED: SODIUM CHLORIDE 0.9% 1000ML 1,000 ML IV SCH (11:45)
[2021-05-19] MEDS ORDERED: CYCLOBENZAPRINE5 MG PO (11:45)
[2021-05-19] MEDS ORDERED: ONDANSETRON HCL INJ 2MG/ML 2ML 2 MG/ML VIAL IV ONE (11:47)
[2021-05-19] MEDS ORDERED: SODIUM CHLORIDE 0.9% 1000ML 1,000 ML ONE (12:15)
[2021-05-19] MEDS ORDERED: ONDANSETRON HCL INJ 2MG/ML 2ML 2 MG/ML VIAL ONE (12:15)
[2021-05-19] MEDS ORDERED: ONDANSETRON ODT4 MG PO (13:09)
[2021-05-19] MEDS ORDERED: LOPERAMIDE2 MG PO (13:10)
== END 2021-05-19 13:21 | disposition home or self-care (01) ==
LOC: FSED 11:33
DX: R19.7 Diarrhea, unspecified (principal); T37.8X5A Adverse effect of other specified systemic anti-infectives and antiparasitics, initial encounter; I10 Essential (primary) hypertension; E78.5 Hyperlipidemia, unspecified; F41.9 Anxiety disorder, unspecified; M81.0 Age-related osteoporosis without current pathological fracture
CPT/HCPCS: 80053; 81003; 82553; 84484; 85025; 96374; 99283; J2405; J7030